=== PATIENT | male | born 1955 | race Caucasian/White ===

== ENCOUNTER 2019-01-15 15:00 | Emergency (ER) | payer OTHER ==
[~2019-01-15] VITALS: Ht 167.6 cm; Wt 65.5 kg
[~2019-01-15 15:00] MED LIST: ASPI81TA52 PO; ATOR20TA38 PO; GLIP5TAB13 PO; LISI-471 PO; METF500T24 PO
[2019-01-15 15:14] VITALS: Ht 167.6 cm; Wt 65.5 kg
--- NOTE | 2019-01-15 16:42 | ERD ---
ER Documentation Chief Complaint Chief Complaint dizziness vertigo left ear pain x 4 yrs HPI The patient is a 63-year-old male, presenting to the ER because of intermittent dizziness, left ear discomfort for more than 4 years. He complains of recurring dizziness, room spinning last night around 7 PM, had similar symptoms previousl y. He denies syncope, near syncope, seizure, facial pain, neck pain, chest pain, dyspnea, abdominal pain, vomiting, dysuria, diarrhea. He complains of chronic epigastric abdominal pain but denies any abdominal pain now. He does not smoke used to drink but quitted many years ago, denies any illicit drug Past medical history: Gastritis, diabetes mellitus, hypertension, dyslipidemia Past surgical history: Right inguinal herniorrhaphy ROS All systems reviewed and are negative except as per history of present illness. Medications Home Meds Active Scripts Meclizine Hcl* (Antivert*) 12.5 Mg Tab, 25 MG PO Q6H PRN for DIZZINESS, #20 TAB Prov:EYAL HERNANDEZ MD 01/15/19 Reported Medications Lisinopril* (Lisinopril*) 20 Mg Tablet, 20 MG PO DAILY, #30 TAB 05/14/16 Atorvastatin Calcium* (Atorvastatin Calcium*) 20 Mg Tablet, 20 MG PO QHS, #30 TAB 10/01/15 Aspirin (Low Dose Aspirin) 81 Mg Tablet.dr, 81 MG PO DAILY 10/01/15 Glipizide* (Glipizide*) 5 Mg Tablet, 2.5 MG PO WITH MEALS, TAB 10/01/15 Metformin Hcl* (Metformin Hcl*) 500 Mg Tablet, 500 MG PO BID WITH MEALS, TAB 10/01/15 Allergies Allergies: Coded Allergies: No Known Allergy (Unverified , 05/14/16) PMhx/Soc History of Surgery: Yes (HERINA REPAIR) Anesthesia Reaction: No Hx Neurological Disorder: No Hx Respiratory Disorders: No Hx Cardiac Disorders: Yes (htn, high cholesterol) Hx Psychiatric Problems: No Hx Miscellaneous Medical Probl: Yes (DM) Hx Alcohol Use: No Hx Substance Use: No Hx Tobacco Use: Yes Physical Exam Vitals Vital Signs Date Temp Pulse Resp B/P (MAP) Pulse Ox O2 O2 Flow FiO2 Time Delivery Rate 01/15/19 78 20 117/69 98 Room Air 20:07 (85) 01/15/19 98.7 74 18 136/71 96 15:14 (92) Physical Exam Const: No acute distress. Head: Atraumatic. Eyes: Normal Conjunctiva. ENT: Normal External Ears, Nose and Mouth. Neck: Full range of motion. No meningismus. Resp: Clear to auscultation bilaterally. Cardio: Regular rate and rhythm. Abd: Soft, non distended, normal bowel sounds, non tender. Skin: No petechiae or rashes. Back: No midline or flank tenderness. Ext: No cyanosis, or edema. Neur: Awake and alert. No focal deficit Psych: Normal Mood and Affect. Result Diagram: 01/15/19 1656 01/15/19 1656 Results 24 hrs Laboratory Tests Test 01/15/19 16:53 01/15/19 16:56 01/15/19 20:03 Bedside Glucose 151 mg/dL White Blood Count 13.0 10^3/ul Red Blood Count 4.29 10^6/ul Hemoglobin 11.8 g/dl Hematocrit 36.3 % Mean Corpuscular Volume 84.6 fl Mean Corpuscular Hemoglobin 27.5 pg Mean Corpuscular 32.5 g/dl Hemoglobin Concent Red Cell Distribution Width 12.8 % Platelet Count 259 10^3/UL Mean Platelet Volume 9.3 fl Immature Granulocytes % 0.900 % Neutrophils % 67.9 % Lymphocytes % 22.3 % Monocytes % 6.7 % Eosinophils % 1.9 % Basophils % 0.3 % Nucleated Red Blood Cells % 0.0 /100WBC Immature Granulocytes # 0.120 10^3/ul Neutrophils # 8.8 10^3/ul Lymphocytes # 2.9 10^3/ul Monocytes # 0.9 10^3/ul Eosinophils # 0.3 10^3/ul Basophils # 0.0 10^3/ul Nucleated Red Blood Cells # 0.0 10^3/ul Sodium Level 135 mmol/L Potassium Level 4.1 mmol/L Chloride Level 99 mmol/L Carbon Dioxide Level 20 mmol/L Anion Gap 16 Blood Urea Nitrogen 14 mg/dl Creatinine 0.86 mg/dl Est Glomerular Filtrat Rate mL/min > 60 mL/min Glucose Level 156 mg/dl Calcium Level 9.9 mg/dl Total Bilirubin 0.4 mg/dl Direct Bilirubin 0.00 mg/dl Indirect Bilirubin 0.4 mg/dl Aspartate Amino Transf (AST/SGOT) 21 IU/L Alanine 19 IU/L Aminotransferase (ALT/SGPT) Alkaline Phosphatase 85 IU/L Total Protein 8.0 g/dl Albumin 4.7 g/dl Globulin 3.30 g/dl Albumin/Globulin Ratio 1.42 Lipase 137 U/L Bedside Urine pH (LAB) 7.0 Bedside Urine Protein (LAB) Negative Bedside Urine Glucose (UA) Negative Bedside Urine Ketones (LAB) Negative Bedside Urine Blood Negative Bedside Urine Nitrite (LAB) Negative Bedside Urine Leukocyte Esterase Negative (L Procedures/MDM [place] [address] Radiology Main Line: [phone] DIAGNOSTIC IMAGING REPORT Patient: OLAYINKA HOLLIS : 1955 Age: 63 Sex: M MR #: [id number] DOS: 01/15/19 171 Ordering MD: EYAL HERNANDEZ MD Location: E/R Room/Bed: PROCEDURE: XR Chest. CLINICAL INDICATION: Chest pain TECHNIQUE: Single frontal view of the chest was obtained COMPARISON: CR CHEST 05/14/2016 FINDINGS: The heart is enlarged. The thoracic aorta is calcified. There is right middle lobe scarring. There is no focal infiltrate. There is no pleural effusion or pneumothorax. RPTAT: AA IMPRESSION: Mild cardiomegaly. Calcified aorta consistent with atherosclerotic disease. Right middle lobe scarring. .Cheng Chamberlain MD, Date Time Electronically viewed and signed by .Cheng Chamberlain MD, on 01/15/2019 18:43 .S/ CC: EYAL HERNANDEZ MD [id number] [place] [id number] Radiology Main Line: [phone] DIAGNOSTIC IMAGING REPORT Patient: OLAYINKA HOLLIS : 1955 Age: 63 Sex: M MR #: [id number] DOS: 01/15/19 1654 Ordering MD: EYAL HERNANDEZ MD Location: E/R Room/Bed: PROCEDURE: CT Brain without contrast. CLINICAL INDICATION: Dizziness TECHNIQUE: A CT of the brain was performed on a multidetector CT scanner utilizing axial imaging from the skull base through the vertex without IV contrast. Multiplanar reformatted images were made. Images were reviewed on a PACS workstation. The CTDIvol is 39 mGy and the DLP is 555 mGycm. DICOM images are available. One or more of the following dose reduction techniques were utilized: 1.) Automated exposure control 2.) Adjustment of the mA +/- kV according to patient's size 3.) Use of iterative reconstruction technique. COMPARISON: Head CT May 14, 2016 FINDINGS: There is no intracranial hemorrhage, mass effect, or midline shift. No extra- axial fluid collection is seen. There is mild to moderate diffuse cerebral volume loss with sulcal and ventricular dilatation. Ventricles are of normal configuration.. The density of the brain is normal, and the posey white matter differentiation appears well-preserved. The visualized paranasal sinuses and osseous structures are grossly unremarkable. IMPRESSION: 1. No evidence of acute intracranial pathology. 2. Atrophy. .Shane Carlson MD, MD Date Time Electronically viewed and signed by .Shane Carlson MD, MD on 01/15/2019 19:14 .A/ CC: EYAL HERNANDEZ MD [id number] EKG: Read by emergency physician Rate/Rhythm: Normal Sinus Rhythm 65 beats/min QRS, ST, T-waves: No ST elevation, inferior and lateral T abnormality Impression: Abnormal EKG MEDICAL MAKING DECISION: The patient is a 63-year-old male, presenting with acute on chronic dizziness of unclear etiology, was treated with Antivert 25 mg p.o. for acute dizziness with good response, is stable for outpatient follow-up The differential diagnoses considered include but are not limited to central causes such as cerebellar infarct, cerebellar hemorrhage, cerebellar tumor, acoustic neuroma, peripheral causes such as benign positional vertigo, labyrinthitis, medication, Meniere's disease. Departure Diagnosis: Primary Impression: Dizziness Additional Impression: Anemia Condition: Good Comments He was discharged with Antivert and referred to ENT specialist Dr Sethi in 2-3 days I discussed the findings with the patient. I advised the patient to follow-up with the primary physician in about 2-3 days, sooner if needed and return if any concern. Disclaimer: Inadvertent spelling and grammatical errors are likely due to EHR/dictation software use and do not reflect on the overall quality of patient care. Also, please note that the electronic time recorded on this note does not necessarily reflect the actual time of the patient encounter. EYAL HERNANDEZ MD Jan 15, 2019 16:42
[2019-01-15] MEDS ORDERED: MECL12.574 PO (19:55)
[2019-01-15 20:07] VITALS: BP 117/69; PULSE 78; RESP 20
== END 2019-01-15 20:10 | disposition home or self-care (01) ==
LOC: E/R 15:00
DX: R42 Dizziness and giddiness (principal); E11.9 Type 2 diabetes mellitus without complications; I10 Essential (primary) hypertension; D64.9 Anemia, unspecified; Z79.84 Long term (current) use of oral hypoglycemic drugs; Z79.82 Long term (current) use of aspirin; Z87.891 Personal history of nicotine dependence
CPT/HCPCS: 36415; 70450; 71045; 80053; 81003; 82962; 83690; 85025; 93005; Z7502